=== PATIENT | female | born 1960 | race Hispanic/Latino ===

== ENCOUNTER 2021-10-18 17:54 | Emergency (ER) | payer OTHER ==
[~2021-10-18] VITALS: Ht 152.4 cm; Wt 72.6 kg
== END 2021-10-18 22:07 | disposition home or self-care (01) ==
LOC: ER 18:11
DX: S00.03XA Contusion of scalp, initial encounter (principal); M54.50 Low back pain, unspecified; M25.512 Pain in left shoulder; R51.9 Headache, unspecified; R42 Dizziness and giddiness; W10.8XXA Fall (on) (from) other stairs and steps, initial encounter; Y93.01 Activity, walking, marching and hiking; Y92.89 Other specified places as the place of occurrence of the external cause; I10 Essential (primary) hypertension; E78.5 Hyperlipidemia, unspecified
CPT/HCPCS: 70450; 71045; 72125; 72192; 99284